=== PATIENT | female | born 1995 | race Caucasian/White ===

== ENCOUNTER → 2024-08-20 06:31 | Outpatient (CLI) | payer BC, SELFPAY ==
--- NOTE | 2024-08-20 09:00 | DI.MRI.S_ITS ---
PROCEDURE: MR ENTEROGRAPHY PROTOCOL INDICATIONS: SMALL INTESTINE TECHNIQUE: After the ingestion of oral contrast, coronal and axial HASTE, coronal 2-D FLASH in-and [id number] sequences. After the administration of contrast, coronal and axial VIBE or 2-D FLASH with fat saturation sequences acquired through the abdomen and pelvis. Optional diffusion weighted imaging and ADC may be performed. COMPARISON: None. FINDINGS: Image quality: Motion degraded Lower chest: No pleural effusions. Liver: No solid mass. Gallbladder and biliary system: Unremarkable, nondilated Pancreas: No ductal dilation Spleen: Nonenlarged Adrenals: No discrete nodules Kidneys: No solid mass or hydronephrosis Vessels and lymph nodes: The main portal vein is patent. No abdominal aortic aneurysm. No pathologic lymph nodes by size criteria. Bowel and peritoneum: Unfortunately, most of the postcontrast images are significantly degraded by motion artifact. There is moderate fecal loading. There is questionable mucosal hyperemia in the region of the terminal ileum. No significant findings of active colitis. No other significant finding of enteritis elsewhere. Body wall: No pathologic ascites Pelvis: Prominent endometrium ovaries, probably physiologic for age but not well evaluated on this nondedicated study. Small amount pelvic free fluid is seen, probably physiologic. Bladder is unremarkable, but only partially visualized Bones: No acute or suspicious osseous finding. No sacroiliac ankylosis. IMPRESSION: Motion degraded MRI, particularly on the post gadolinium sequences. Questionable low-grade mucosal enhancement and edema at the terminal ileum, without upstream obstruction or surrounding free fluid. This could be artifactual versus mild active inflammation. No evidence of colitis, small-bowel obstruction, or significant enteritis elsewhere. CT enterography could be an alternative modality less prone to motion artifact if desired for follow-up. Dictated by: Fernando Pryor M.D. on 08/21/2024 at 12:47 Approved by: Fernando Pryor M.D. on 08/21/2024 at 13:01
== END ==
PROVIDERS: PCP Naturopath; Referring Provider Physician Assistant; Visit Provider Physician Assistant
DX: K59.1 Functional diarrhea (principal); R14.0 Abdominal distension (gaseous); Z83.718 Family history of other colon polyps
CPT/HCPCS: 72197; 74183; A9579

== ENCOUNTER → 2024-12-17 16:12 | Outpatient (CLI) | payer BC, SELFPAY ==
[2024-12-17 17:18] LABS: Add Manual Diff / Slide Review NO; Basophils Absolute Auto 0 /uL (0-100); Basophils Percent Auto 0.5 % (0-2); Eosinophils Absolute Auto 300 /uL (0-450); Eosinophils Percent Auto 2.4 % (2-4); Hematocrit 39.6 % (36-46); Hemoglobin 13.1 g/dL (12.0-16.0); Lymphocytes Absolute Auto 1300 /uL (1100-4500); Lymphocytes Percent Auto 12.2 % (25-40); Mean Corpuscular HGB Conc 33.1 % (30-36); Mean Corpuscular Hemoglobin 28.8 PG (26-34); Mean Corpuscular Volume 86.9 fL (80-100); Monocytes Absolute Auto 600 /uL (0-900); Monocytes Percent Auto 5.4 % (3-14); Neutrophils Absolute Auto 8100 /uL (1500-7000); Neutrophils Percent Auto 79.5 % (50-75); Platelet Count 286 X10^3/uL (150-400); Red Blood Cell Count 4.56 X10^6/uL (4.0-5.2); Red Cell Distribution Width 14.1 % (11.6-14.8); White Blood Cell Count 10.3 X10^3/uL (4.5-11.0)
[2024-12-17 17:35] LABS: Alanine Aminotransferase 14 IU/L (<35); Albumin 4.9 g/dL (3.5-5.0); Albumin Globulin Ratio 1.5 (1.0-2.8); Alkaline Phosphatase 41 U/L (38-126); Aspartate Aminotransferase 26 IU/L (14-36); Bilirubin Total 0.4 mg/dL (0.2-1.3); Blood Urea Nitrogen 30 mg/dL (7-17); Calcium 9.3 mg/dL (8.4-10.2); Carbon Dioxide 23 mmol/L (22-32); Chloride 104 mmol/L (98-107); Cholesterol 214 mg/dL (140-199); Estimated Glomerular Filt Rate > 60 mL/min (>60); Globulin 3.3 g/dL (1.7-4.1); Glucose 88 mg/dL (70-100); HDL Cholesterol 61 mg/dL (40-60); HEMOLYSIS < 15 (0-50); LDL Cholesterol Calculated 108 mg/dL (<100); Sodium 137 mmol/L (137-145); Total Protein 8.2 g/dL (6.3-8.2); Triglycerides 223 mg/dL (35-150)
[2024-12-17 18:03] LABS: Thyroid Stimulating Hormone 0.361 uIU/mL (0.47-4.68)
[2024-12-17 18:06] LABS: Ferritin 10 ng/mL (6-137); Testosterone 19.4 ng/dL (5.71-77.0)
[2024-12-17 18:38] LABS: Folate 6.1 ng/mL (2.76-20.0); Vitamin B12 962 pg/mL (239-931)
== END ==
PROVIDERS: PCP Naturopath; Referring Provider Naturopath; Visit Provider Naturopath
DX: Z00.00 Encounter for general adult medical examination without abnormal findings (principal); E61.1 Iron deficiency; R53.83 Other fatigue
CPT/HCPCS: 36415; 80053; 80061; 82607; 82728; 82746; 84403; 84443; 85025